=== PATIENT | male | born 2000 ===

== ENCOUNTER 2024-07-24 13:15 | Outpatient (CLI) | payer OTHER, SELFPAY | END 2024-07-24 13:16 | disposition home or self-care (01) | LOC: AMB 08-09 13:26 | PROVIDERS: Visit Provider Emergency Medicine Emergency Medical Services | DX: R22.0 Localized swelling, mass and lump, head (principal); T78.1XXA Other adverse food reactions, not elsewhere classified, initial encounter | CPT/HCPCS: A0998 ==